=== PATIENT | female | born 1995 ===

== ENCOUNTER 2017-03-05 15:38 | Inpatient (IN) | payer OTHER ==
--- NOTE | 2017-03-05 15:47 | ED PDOC ---
Psych Transfer Clearance - Clearance Statement Clearance Statement: Reviewed vital signs, lab results and transfer papers. Patient clinically stable for psychiatric admission.
[2017-03-05] MEDS ORDERED: Magnesium Hydroxide Susp 30 ml UD PO PRN (17:21)
[2017-03-05] MEDS ORDERED: Alum-Mag Hydrox-Simethicone Susp (30 mL) PO PRN (18:53)
[2017-03-05] MEDS ORDERED: DiphenhydrAMINE 50 mg/ml Inj IM PRN (19:00)
--- NOTE | 2017-03-05 19:56 | PCM.BM ---
<Lorraine Mcclain Massimo - Last Filed: 03/05/17 19:53> Treatment Plan Problems - Problems identified on initial assessmt Hopelessness/Helplessness Date Initiated: 03/05/17 Time Initiated: 19:54 Assessment reference: NA Status: Active Treatment assets and liabiliti Patient Assests: adapts well, cooperative, ADL independent, physically healthy, negotiates basic needs Patient Liabilities: relationship conflicts - Milieu Protocol Maintain good personal hygiene: daily Remind patient to perform daily oral care , every other day Encourage regular showers Maintain personal safety: every shift Educate patient to report safety concerns to staff, every shift Monitor environment for contraband/sharps Medication safety: Monitor for expected outcome, potential side effects: every shift, Assess barriers to learning: every shift, Assess readiness for medication education: every shift <Mindi Yuan - Last Filed: 03/06/17 11:36> - Diagnosis (1) Major depressive disorder Status: Acute Interventions: Medication management, Individual and group therapy, Psychoeducation 03/06/17 11:37 <Ligia Patel - Last Filed: 03/06/17 14:20> Treatment assets and liabiliti Patient Assests: adapts well, cooperative, ADL independent, physically healthy, negotiates basic needs Patient Liabilities: relationship conflicts, other Family Contact Family involvement: Family/SO is involved Family contact: Patient agrees to contact Family contact name: Moriah() ([phone]) Family contacted how many times per week?: 1 - Goals for Treatment Patient goals for treatment: Patient to be encouraged to attend 2-4 groups/week to develop effective coping skills, improve insight and promote compliance. Patient to continue stabilization on 3NP through medication managemen and group/ supportive therapy. Patient to be provided with referral for appropriate level of aftercare to ensure saftey/functioning in the community and reduce risk of future hospitalizations. Discharge/Continuing Care - Education Needs Education Needs: Family Medication, Family Diagnosis/Disease Process, Family Coping Skills, Family Community resources, Family Aftercare Safety Plan, Patient Medication, Patient Diagnosis/Disease Process, Patient Coping Skills, Patient Community resources, Patient Aftercare Safety Plan - Discharge Discharge Criteria: Tolerates medication w/o severe side effects, Free of Suicidal thoughts, Normal sleep pattern, Ability to care for self, Reduction of target symptoms Discharge to:: Home, With Family <Ruchi Samaniego Jaciel - Last Filed: 03/08/17 12:13> Discharge/Continuing Care - Additional Comments 03/08/17 12:10 Pt seen and discussed in team meeting. Pt's progress and bx on unit discussed. Reason for admission reviewed. Pt's medications discussed. Pt's social and medical issues reviewed. Pt reported limited social and emotional support system. Reportedly, pt's only support system at this time is her . Pt reported several stressors contributing to her depression. Pt reported hx of nightmares due to past trauma. Additionally, pt reported racing thoughts. Tx plan discussed and pt is agreeable. - Treatment Team Participation Discussed with Family/SO: No Was Patient/Family/SO present at Treatment Team Meeting: Yes
[2017-03-06 06:48] LABS: BASO % 0.7 % (0.0-2.0); EOS # 0.1 K/uL (0.0-0.7); EOS % 3.4 % (0.0-4.0); HEMATOCRIT 35.2 % (34.0-47.0); LYMPH % 48.1 % (20.0-40.0); MEAN CORPUSCULAR HEMOGLOBIN 28.8 pg (27.0-31.0); MEAN CORPUSCULAR HGB CONC 33.1 g/dL (33.0-37.0); MEAN PLATELET VOLUME 8.3 fl (7.2-11.7); MONO # 0.4 K/uL (0.0-0.8); MONO % 9.9 % (0.0-10.0); NEUT # 1.6 K/uL (1.8-7.0); NEUT % 37.9 % (50.0-75.0); NRBC % 0.1 % (0.0-0.0); RED CELL DISTRIBUTION WIDTH 13.1 % (11.5-14.5); WHITE BLOOD COUNT 4.2 K/uL (4.8-10.8)
[2017-03-06 06:57] LABS: ALB/GLOB RATIO 1.3 (1.0-2.1); ALKALINE PHOSPHATASE 38 U/L (38-126); ALT/SGPT 26 U/L (9-52); AST/SGOT 18 U/L (14-36); BILIRUBIN,TOTAL 0.6 mg/dl (0.2-1.3); BLOOD UREA NITROGEN 10 mg/dl (7-17); CALCIUM 9.2 mg/dL (8.4-10.2); CARBON DIOXIDE 25 mmol/L (22-30); CHLORIDE 108 mmol/L (98-107); CHOLESTEROL 148 mg/dL (0-199); GFR AFRICAN-AMERICAN > 60; GLUCOSE,RANDOM 93 mg/dL (65-105); POTASSIUM 4.3 MMOL/L (3.6-5.0); SODIUM 141 mmol/l (132-148); TOTAL PROTEIN 6.8 G/DL (6.3-8.2)
[2017-03-06 07:20] LABS: T4 8.03 ug/dl (5.5-11.0)
[2017-03-06 07:33] LABS: THYROID STIMULATING HORMONE 1.81 mIU/ML (0.46-4.68)
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
[2017-03-07 06:02] VITALS: O2SAT 100
--- NOTE | 2017-03-07 10:22 | PCM.PYCHPN ---
Psychiatric Progress Note - Psychiatric Progress Note Patient seen today, length of contact: Patient evaluated, chart reviewed Patient Chief Complaint: "I'm okay" Problems Identified/Issues Discussed: Patient observed calmly engaging in activities with others. She continues to report severe depression. No adverse effects to Zoloft reported. She denies current ideation to harm herself or others. 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 Medication Change: No Medical Record Reviewed: Yes Mental Status Examination - Cognitive Function Orientation: Person, Place, Situation, Time Memory: Intact Attention: WNL Concentration: WNL Association: WNL Fund of Knowledge: WNL - Mood Mood: Depressed - Affect Affect: Blunted, Depressed - Speech Speech: Soft - Formal Thought Process Formal Thought Process: No Impairment Psychotic Thoughts and Behaviors: No AH/VH/paranoia/delusions - Suicidal Ideation Suicidal Ideation: No - Homicidal Ideation Homicidal Ideation: No Goal/Treatment Plan - Goal/Treatment Plan Need for Continued Stay: Remain at risks for inpatient hospitalization, Severe depression anxiety, Discharge may exacerbated symptoms Progress Toward Problem(s) and Goals/Treatment Plan: Major Depressive Disorder, r/o PTSD -Continue Zoloft 25 mg PO Daily -Individual and group therapy -Disposition planning -Hospitalist consult appreciated -Obtain collateral history Estimated Date of D/C: 03/12/17 - Smoking Cessation Smoking Cessation Initiated: No Reason for not providing: Not indicated
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
[2017-03-08 17:15] VITALS: TEMP 97.1
[2017-03-08 21:47] VITALS: RESP 20
[2017-03-09 09:08] VITALS: BP 96/59; PULSE 104
--- NOTE | 2017-03-09 12:27 | PCM.PYCHDC ---
Mental Status Examination - Mental Status Examination Orientation: Person, Place, Situation, Time Memory: Intact Mood: Neutral Affect: Broad Speech: Appropriate Attention: WNL Concentration: WNL Association: WNL Fund of Knowledge: WNL Formal Thought Process: No Impairment Description of patient's judgement and insight: fair Psychotic Thoughts and Behaviors: denies a/v hallucinations Suicidal Ideation: No Current Homicidal Ideation?: No Plan: pt denies any suicidal or homicidal thoughts Discharge Summary - Discharge Note Reason for Hospitalization: overdose attempt Psychiatric History (includes Medical, Family, Personal Hx): no previous psychiatric history Consultations:: List each consultation separately and include: 1. Reason for request. 2. Findings. 3. Follow-up Consultations: seen by hospitalist Summary of Hospital Course include:: 1. Description of specific treatment plan utilized for patients during their course of treatmen. 2. Summarize the time- course for resolution of acute symptoms and/or regressed behaviors. 3. Describe issues identified and worked on during hospitalization. 4. Describe medication utilized. 5. Describe medical problems identified and treated. 6. Reassessment of suicide risk Summary of Hospital Course: pt was admitted to [facility] for safety and observation. she was placed on routine safety protocols. she was started on zoloft to target her depression. she tolerated the medication without complaint of side effects. the patient reported that she had never had therapy in the past and had been "pushing things down for years" she reported that there were some conflicts with her . a meeting was held with the patient and her and he was expressing support for the patient returning home. he reported that he understood that the patient is suffering and expressed that he was going to be supportive of her continuing her treatment after the discharge. the patient was agreeing to continue to take her medications and to follow up with aftercare appointments. at the time of discharge she was denying any suicidal or homicidal thoughts. - Final Diagnosis (DSM 5) Condition upon Discharge: STABLE DSM 5: major depression, moderate r/o ptsd Disposition: HOME/ ROUTINE Follow-up Treatment Plan: follow up with aftercare as directed take medications as prescribed do not use alcohol, tobacco or other illicit substances call 911 if any suicidal or homicidal thoughts Prescriptions/Medication Reconciliation: Prazosin HCl [Minipress] 1 mg PO HS #15 cap Sertraline [Zoloft] 50 mg PO DAILY #15 tab - Smoking Cessation Smoking Cessation Medication prescribed: No Reason for not providing: does not smoke - Antipsychotic Medications Pt discharged on 2 or more routine antipsychotic medications: No
== END 2017-03-09 13:04 | disposition home or self-care (01) | DRG 430 ==
LOC: H.ER 15:38 → H.ERHOLD 15:46 → H.PSYCH 16:36
PROVIDERS: ADMIT Psychiatry & Neurology Psychiatry; ATTEND Psychiatry & Neurology Psychiatry
PROC: GZ51ZZZ Individual Psychotherapy, Behavioral (ICD-10-PCS; 2017-03-05)
PROC: GZHZZZZ Group Psychotherapy (ICD-10-PCS; principal; 2017-03-08)
DX: F32.1 Major depressive disorder, single episode, moderate (principal); R11.0 Nausea; Z91.5 Personal history of self-harm; Z79.899 Other long term (current) drug therapy; T43.225A Adverse effect of selective serotonin reuptake inhibitors, initial encounter; Y92.230 Patient room in hospital as the place of occurrence of the external cause